=== PATIENT | female | born 1950 | race Caucasian/White ===

== ENCOUNTER 2016-08-16 21:46 | Inpatient (IN) | payer MEDICARE, MEDICAID ==
[~2016-08-16] VITALS: Ht 152.4 cm; Wt 78.0 kg
[~2016-08-16 21:46] MED LIST: ALLOPURINOL100 MG; ALPHA LIPOIC A200 MG PO; ASPIRIN LOW DOS81 MG PO; ATENOLOL25 MG PO; AUGMENTIN875TAB PO; AZOR1 TA1; AZOR1 TA1 PO; AZOR1 TA2; B COMPLEX PO; BENADRYL25 M1 PO; BENZONATATE200 MG PO; BETIMOL0.5 %; CARDURA4 MG; CITALOPRAM10 MG PO; CITALOPRAM20 MG PO; DIABETA2.5 MG PO; DICLOFENAC0.1 % OP; DIPHEN/ATROP2.5 M1 PO; DOXYCYCL HYC100 MG PO; FISH OIL300 MG PO; FLONASE NASAL50 MCG; GLIMEPIRIDE2 MG PO; HYZAAR1 TA1 PO; JANUVIA100 MG; JANUVIA100 MG PO; KLONOPIN WAF0.5 MG; LANTUS100 MG/ML; LASIX40 MG; LEXAPRO10 MG; LOMOTIL2.5 MG PO; LOPRESSOR50 MG; MELATONIN5 MG PO; METAMUCIL0.52 G1; MUCINEX600 MG PO; MULTIVITAMI1 PO; NOVOLIN; NOVOLOG; OMEPRAZOLE20 M2 PO; PLAVIX75 MG; POT CHLORIDE; PREMARIN0.625 MG; PRILOSEC20 MG PO; PROBIOTIC1 TAB PO; STOOL SOFTEN1 TAB PO; TESSALON PER100 MG PO; VIIBRYD20 MG PO; VITAMIN C500 MG; ZETIA10 MG; ZOCOR20 M1 PO; [UNRECOGNIZED DRUG - OTHER]
[2016-08-16] MEDS ORDERED: OMEPRAZOLE20 M2 PO (22:20)
[2016-08-16] MEDS ORDERED: JANUVIA100 MG PO (22:21)
[2016-08-16] MEDS ORDERED: VIVLODEX5 MG PO (22:21)
[2016-08-16] MEDS ORDERED: KLONOPIN1 MG PO (22:22)
[2016-08-16] MEDS ORDERED: METOPROL TAR25 MG PO (22:23)
[2016-08-16] MEDS ORDERED: [UNRECOGNIZED DRUG - CODE] PO (22:24)
[2016-08-16] MEDS ORDERED: MAG-G500 MG PO (22:25)
[2016-08-16] MEDS ORDERED: LYSINE1000 MG PO (22:25)
[2016-08-16] MEDS ORDERED: BETIMOL0.25 % OU (22:27)
--- NOTE | 2016-08-16 22:29 | NUR ---
PT AMBULATED TO ROOM 9 WITH HENOK
--- NOTE | 2016-08-16 23:00 | NUR ---
INTRODUCED SELF TO PT ON HER ARRVIAL TO ROOM 9 AND ASSESSMENT COMPELTED. PRESENTS WITH COMPLAINTS OF VOMITING X 4 AND DIARRHEA X 5 THAT BEGAN AT 0100 THIS AM. LAST EMESIS WAS AT APPROXIMATELY 0500 BUT HAS HAD SEVERAL LARGE LIQUID STOOLS AND INCONTINENCE. REPORTING MALAISE, WEAKNESS. DENIES FEVER, SORE THROAT, COUGH, DYSURIA. SHE IS ALERT AND ORIENTED, SKIN IS PALE, COOL AND DRY. SL DECREASED SKIN TURGOR. CAP REFILL < 2 SEC. ORAL MUCOUS MEMBRANES PINK, DRY. CONVERSES WITHOUT DIFFICULTY. ORIENTED ALL ASPECTS. RESPIRATIONS EUPENIC. CHEST EXPANSION IS SYMMETRICAL AND LUNGS ARE CLEAR. CARDIAC [id number] WITHOUT ECTOPY. ABDOMEN IS SOFT, MILD DISTENTION, NON TENDER TO PALPATION. NO PERIPHERAL EDEMA PRESENT. RADIAL/DP PULSES + 2. INSTRUCTED TO REMAIN NPO AT THIS TIME. PLAN OF CARE WAS REVIEWED AND PT IN AGREEMENT WITH TREATMENT PLAN. ATTEMPTED IV BY 2 PEOPLE AND ACHEIVED ON TRY # 3 TO LEFT HAND.
[2016-08-16 23:23] LABS: HEMOGLOBIN 11.4 g/dl (12.0-16.0); IMMATURE GRANULOCYTES 0.3 % (0.0-1.0); MEAN CELL VOLUME 92.6 fL CALC (80.0-100.0); MEAN CORPUSCULAR HGB 30.2 pG CALC (26.0-32.0); MEAN CORPUSCULAR HGB CONC 32.6 g/L CALC (32.0-36.0); NEUT# 6.37 thou/uL (2.00-7.15); RED BLOOD COUNT 3.78 mill/uL (4.20-5.60); RED CELL DISTRI WIDTH 13.1 % (11.5-15.5)
[2016-08-16 23:38] LABS: ALKALINE PHOSPHATASE 75 u/l (38-126); AMYLASE 37 u/l (30-110); ANION GAP 17 (6-22 (CALC)); BILIRUBIN, TOTAL 0.9 mg/dL (0.0-1.4); BUN 48 mg/dL (8-23); BUN/CREATININE RATIO 30 (12-20 (CALC)); CALCIUM 8.7 mg/dL (8.4-10.2); CARBON DIOXIDE 27 mmol/l (22-30); CHLORIDE 97 mmol/l (95-108); CREATININE 1.6 mg/dL (0.5-1.0); GFR 32 ML/MIN (>=60 (CALC)); GFR FOR AFR.AMER. 39 ML/MIN (>=60 (CALC)); GLUCOSE 337 mg/dL (82-115); LIPASE 35 u/l (23-300); POTASSIUM 4.1 mmol/l (3.5-5.1); SGOT/AST 32 u/l (9-36); SGPT/ALT 26 u/l (11-66); SODIUM 136 mmol/l (137-146); TOTAL PROTEIN 7.8 g/dL (6.3-8.2)
[2016-08-16 23:50] LABS: MYOGLOBIN 201 ng/mL (0 - 62)
--- NOTE | 2016-08-16 23:55 | NUR ---
DR. BENAVIDES INFORMED UNABLE TO OBTAIN LACTIC ACID AT THIS TIME. INFUSING FLUIDS AND WILL ATTEMPT IN ONE HOUR. PT AWARE AND IS REQUESTING "A LITTLE TIME BECAUSE I HATE NEEDLES." RESTING QUIETLY ON STRECHER, DENIES PAIN. NO EMESIS, NO DIARRHEA STOOLS.
--- NOTE | 2016-08-17 00:28 | NUR ---
ATTEMPTING BLOOD CULTURES AGAIN AFTER FLUID HYDRATION. NO EMESIS, NO DIARRHEA SINCE ARRIVAL. NAUSEA ALEVIATED POST ZOFRAN, NO ADVERSE REACTIONS NOTED. DISCUSSED ADMISSION AND PT IN AGREEMENT WITH TREATMENT PLAN
--- NOTE | 2016-08-17 00:59 | NUR ---
CIPRO INFUSION INTIATED AND PT INSTRUCTED TO NOTIFY STAFF IMMEDIATELY WITH ANY S/S OF DRUG REACTIONS
--- NOTE | 2016-08-17 01:13 | NUR ---
CALLED TO PT ROOM BECAUSE OF COMPLAINTS OF PRUITIS AT IV INSERTION SITE. OBSERVED PT SCRATCHING WRIST, NO RASH, NO EDEMA, NO ERYTHEMEA, SPEECH IS CLEAR, NORMAL PHONATION, AIRWAY IS PATENT WITHOUT STRIDOR, DROOLING, SKIN REMAINS WARM AND DRY. DISCUSSED WITH DR. BENAVIDES WHO ORDERED BENADRYL 25 MG IVP. DISCUSSED WITH PT WHO WAS IN AGREEMENT WITH TREATMENT PLAN. ADMONISHED REGARDING CONTINUATION OF OBSERVATION AND REPORTING OF S/S OF REACTION. FALL PRECAUTIONS WERE INTIATED BECAUSE OF IV BENADRYL ADMINISTRATION. BED IN LOW POSITION, SIDE RAILS UP AND CALL LIGHT REVIEWED WITH PT. FALL PRECAUTIONS BAND APPLIED.
--- NOTE | 2016-08-17 01:25 | NUR ---
PT REPORTS PRUITIS AT IV SITE CURRENTLTY RESOLVED. SLEEPY. COTIUES WITH CIPRO INFUSION PER DR. BENAVIDES. AIRWAY PATENT, NO STRIDOR, NO DROOLING, RESPIRATIONS EUPENIC. SKIN WARM AND DRY.
--- NOTE | 2016-08-17 02:02 | NUR ---
PT ASSESSMENTUNCHANGED. CONTINUES IN ED TO OBSERVE DURING CIPRO ADMINISTRAITON. REPORT CALLED TO WEI SHER ON MED/SURG
--- NOTE | 2016-08-17 02:14 | NUR ---
PLACED ON TELEMTRY MONITOR. PT TRANSPORTED VIA STRETCHER ACCOMPANIED BY BAKERY TEAM LEADER IN STABLE CONDITION. CIPRO COMPLTED AT 0201 WITHOUT FURTHER INCIDENT
--- NOTE | 2016-08-17 02:20 | NUR ---
PT TRANSFERED TO FLOOR IN STABLE CONDITION VIA STRETCHER ACCOMPANIED BY NIKKY CEDILLO;PT AMBULATED WITH WEAK GAIT TO STANDING SCALE AND BED;VS AND BS OF 278 OBTAINED BY JULIO CÉSAR MCCARTHY;PT DENIES ANY PAIN AT THIS TIME AND STATES "I FEEL BETTER SINCE I GOT HERE";PT ORIENTED TO ROOM AND CALL LIGHT SYSTEM AND VERBALIZES UNDERSTANDING;IV SITE TO LEFT HAND FLUSHED AND PATENT,FLUIDS STARTED;TELE MONITOR IN PLACE;PT REPORTS LAST BM TO BE ON 08/16 AND DIARRHEA;PT DENIES ANY ABDOMINAL PAIN AT THIS TIME;SKIN INTACT;PULSES STRONG;UA OBTAINED;PT DENIES ANY OTHER NEEDS;SAFETY PRECAUTIONS REINFORCED;PT EDUCATED TO CALL FOR ASSISTANCE IF NEEDED;BED IN LOWEST POSITION WITH CALL LIGHT IN REACH;WILL CONTINUE TO MONITOR
--- NOTE | 2016-08-17 03:00 | NUR ---
INITIAL TELE READING OF SR 62 OBTAINED BY ER MONTIORING AT THIS TIME;WILL CONTINUE TO MONITOR
[2016-08-17 03:29] LABS: URINE BILIRUBIN - DIPSTICK NEGATIVE (NEGATIVE); URINE BLOOD DIPSTICK NEGATIVE (NEGATIVE); URINE CLARITY CLOUDY; URINE COLOR YELLOW; URINE GLUCOSE - DIPSTICK NEGATIVE (NEGATIVE); URINE KETONE NEGATIVE (NEGATIVE); URINE LEUK ESTERASE NEGATIVE (NEGATIVE); URINE NITRITE - DIPSTICK NEGATIVE (Negative); URINE PROTEIN - DIPSTICK NEGATIVE (NEG-TRACE); URINE UROBILINOGEN - DIPSTICK 0.2 E.U./dL (0.2)
[2016-08-17 05:07] LABS: CREATININE 1.4 mg/dL (0.5-1.0); POTASSIUM 3.5 mmol/l (3.5-5.1)
--- NOTE | 2016-08-17 05:40 | NUR ---
PT RESTING IN SEMI FOWLERS POSITION;IV FLUIDS INFUSING WELL TO LEFT HAND;TELE MONITOR IN PLACE;PT DENIES ANY PAIN OR NEEDS AT THIS TIME;PT EDUCATED TO CALL FOR ASSISTANCE IF NEEDED;BED IN LOWEST POSITION WITH CALL LIGHT IN REACH;WILL CONTINUE TO MONITORM
--- NOTE | 2016-08-17 07:09 | NUR ---
REPORT RECIEVED FROM SEAN RESENDIZ; PT RESTING IN BED WITH EYES CLOSED; NO S/S OF DISTRESS NOTED; CALL LIGHT WITHIN REACH; WILL CONTINUE TO MONITOR
[2016-08-17 08:11] VITALS: BP 123/60
[2016-08-17 10:27] LABS: C. DIFFICILE TOXIN A&B NEGATIVE (NEGATIVE)
[2016-08-17 10:28] VITALS: BP 123/62
--- NOTE | 2016-08-17 12:00 | NUR ---
PT SITTING UP IN BED; FAMILY AT BEDSIDE; NO S/S OF DISTRESS NOTED; IVF INFUSING AT PRESCRIBED RATE; PT ENCOURAGED TO CALL FOR ANY ASSISTANCE NEEDED; CALL LIGHT WITHIN REACH; WILL CONTINUE TO MONITOR
[2016-08-17 14:44] VITALS: BP 129/67
--- NOTE | 2016-08-17 16:00 | NUR ---
PT SITTING UP IN BED; NO S/S OF DISTRESS NOTED; FAMILY AT BEDSIDE; IVF INFUSING AT PRESCRIBED RATE; PT DENIES ANY OTHER NEEDS AT THIS TIME; CALL LIGHT WITHIN REACH; WILL CONTINUE TO MONITOR
[2016-08-17 19:33] VITALS: BP 139/66
--- NOTE | 2016-08-17 19:42 | NUR ---
BEDSIDE REPORT RECEIVED BY NIKKY ROJO. PT SITTING UP IN BED, FAMILY AT BEDSIDE. DENIES PAIN AT THIS TIME. RESPIRATIONS EVEN AND UNLABORED. PLAN OF CARE DISCUSSED. PT ENCOURAGED TO VERBALIZE CONCERNS. STATES UNDERSTANDING. SAFETY MEASURES IN PLACE. CALL LIGTH WITHIN REACH.
[2016-08-17 23:25] VITALS: BP 147/67
--- NOTE | 2016-08-18 00:24 | NUR ---
PT ASLEEP AT THIS TIME. NO SIGNS OF PAIN/DISCOMFORT. RESPIRATIONS EVEN AND UNLABORED. FAMILY REMAINS AT BEDSIDE. SAFETY MEASURES IN PLACE. CALL LIGHT WITHIN REACH.
--- NOTE | 2016-08-18 04:12 | NUR ---
PT ASLEEP AT THIS TIME. NO SIGNS OF PAIN OR DISCOMFORT NOTED. RESPIRATIONS EVEN AND UNLABORED. SAFETY MEASURES IN PLACE. CALL LIGHT WITHIN REACH.
[2016-08-18 04:50] VITALS: BP 150/61
[2016-08-18 05:31] LABS: HEMATOCRIT 32.4 % (37.0-47.0); HEMOGLOBIN 10.4 g/dl (12.0-16.0); IMMATURE GRANULOCYTES 0.6 % (0.0-1.0); MEAN CELL VOLUME 93.9 fL CALC (80.0-100.0); MEAN CORPUSCULAR HGB 30.1 pG CALC (26.0-32.0); MEAN CORPUSCULAR HGB CONC 32.1 g/L CALC (32.0-36.0); NEUT# 7.61 thou/uL (2.00-7.15); RED BLOOD COUNT 3.45 mill/uL (4.20-5.60); RED CELL DISTRI WIDTH 12.9 % (11.5-15.5)
[2016-08-18 05:33] LABS: ANION GAP 15 (6-22 (CALC)); BUN 31 mg/dL (8-23); BUN/CREATININE RATIO 28 (12-20 (CALC)); CALCIUM 8.2 mg/dL (8.4-10.2); CARBON DIOXIDE 21 mmol/l (22-30); CHLORIDE 109 mmol/l (95-108); CREATININE 1.1 mg/dL (0.5-1.0); GFR 50 ML/MIN (>=60 (CALC)); GFR FOR AFR.AMER. > 60 ML/MIN (>=60 (CALC)); GLUCOSE 289 mg/dL (82-115); POTASSIUM 4.1 mmol/l (3.5-5.1); SODIUM 141 mmol/l (137-146)
--- NOTE | 2016-08-18 07:28 | NUR ---
PT TALKING WITH DAUGHTER; NO COMPLAINTS VOICED; CALL ROBBINS WITHIN REACH;WILL CONTINUE TO MONITOR.
[2016-08-18 08:38] VITALS: BP 178/70
--- NOTE | 2016-08-18 08:48 | NUR ---
TELE MONITOR IN PLACE; PT DENIES PAIN; IVF INFUSING WITHOUT DIFFICULTY; CALL ROBBINS WITHIN REACH; WILL CONTINUE TO MONITOR.
[2016-08-18 11:28] VITALS: BP 178/71
--- NOTE | 2016-08-18 12:30 | NUR ---
DR. RAMIREZ IN TO SEE PT; PLAN OF CARE;
[2016-08-18] MEDS ORDERED: CIPROFLOXACN500 MG PO (14:47)
--- NOTE | 2016-08-18 15:51 | NUR ---
Discharge instructions given. Patient verbalizes understanding of same. Discharged in stable condition via Wheelchair to Home with family. All belongings sent with pt.
== END 2016-08-18 15:52 | disposition home or self-care (01) | DRG 392 ==
LOC: ENPENDDIS → ED 21:46 → ED-I 08-17 00:10 → ED 08-17 00:15 → MS2 08-17 00:16
PROVIDERS: Emergency Medicine; ADMIT Internal Medicine; ATTEND Internal Medicine
DX: K52.9 Noninfective gastroenteritis and colitis, unspecified (principal); N17.9 Acute kidney failure, unspecified; K52.832 Lymphocytic colitis; E86.0 Dehydration; I10 Essential (primary) hypertension; E11.65 Type 2 diabetes mellitus with hyperglycemia; E78.5 Hyperlipidemia, unspecified; Z79.84 Long term (current) use of oral hypoglycemic drugs; Z98.84 Bariatric surgery status

== ENCOUNTER 2018-05-26 08:09 | Day surgery (SDC) | payer MEDICARE ==
[~2018-05-26] VITALS: Ht 157.5 cm; Wt 73.9 kg
[~2018-05-26 08:09] MED LIST changes: +BETIMOL0.25 % OU; +BRIMONIDINE0.2 % OU; +CIPROFLOXACN500 MG PO; +COQ-1030 M1 PO; +FISH OIL1000 MG PO; -FISH OIL300 MG PO; +FORSKOLIN PO; +KLONOPIN1 MG PO; +LATANOPROST0.005 % OU; +LYSINE1000 MG PO; +MAG-G500 MG PO; +METOPROL TAR25 MG PO; +TRESIBA FL100 UNIT/M IJ; +VITAMIN D31000 UNI1 PO; +VIVLODEX5 MG PO; +[UNRECOGNIZED DRUG - CODE] PO; +[UNRECOGNIZED DRUG - OTHER] IJ
[2018-05-26 10:25] VITALS: BP 162/76
== END 2018-05-26 10:42 | disposition home or self-care (01) ==
LOC: ENDO 08:09 → ORM 09:30 → ENDO 09:30 → ORM 10:00 → ENDO 10:42 → ORM 10:45
PROVIDERS: ATTEND Surgery
PROC: 0DBH8ZX Excision of Cecum, Via Natural or Artificial Opening Endoscopic, Diagnostic (ICD-10-PCS; principal; 2018-05-26)
PROC: 0DBL8ZX Excision of Transverse Colon, Via Natural or Artificial Opening Endoscopic, Diagnostic (ICD-10-PCS; 2018-05-26)
PROC: 0DBP8ZX Excision of Rectum, Via Natural or Artificial Opening Endoscopic, Diagnostic (ICD-10-PCS; 2018-05-26)
PROC: 0DBM8ZX Excision of Descending Colon, Via Natural or Artificial Opening Endoscopic, Diagnostic (ICD-10-PCS; 2018-05-26)
PROC: 0DB78ZX Excision of Stomach, Pylorus, Via Natural or Artificial Opening Endoscopic, Diagnostic (ICD-10-PCS; 2018-05-26)
DX: R19.7 Diarrhea, unspecified (principal); K44.9 Diaphragmatic hernia without obstruction or gangrene; K29.60 Other gastritis without bleeding; I12.9 Hypertensive chronic kidney disease with stage 1 through stage 4 chronic kidney disease, or unspecified chronic kidney disease; E11.22 Type 2 diabetes mellitus with diabetic chronic kidney disease; N18.3 Chronic kidney disease, stage 3 (moderate); E78.5 Hyperlipidemia, unspecified

== ENCOUNTER → 2018-06-17 | Outpatient (REF) | payer MEDICARE | END | disposition home or self-care (01) | LOC: CT 07:56 | PROVIDERS: ATTEND Surgery | DX: R19.7 Diarrhea, unspecified (principal) | CPT/HCPCS: Q9967 ==

== ENCOUNTER 2019-08-10 | Observation (INO) | payer MEDICARE, MEDICAID ==
--- NOTE | 2019-08-10 08:27 | NUR ---
PT TO ROOM VIA WC FOR BEDSIDE TRIAGE
--- NOTE | 2019-08-10 08:54 | NUR ---
PT MEDICATED PER MAR FOR ELEVATED BP; PT ADVISED OF ADDITIONAL TESTING; MONITORING DEVICES IN PLACE; WILL CONTINUE TO MONITOR
[2019-08-10] MEDS ORDERED: TRAZODONE100 MG PO (09:19)
[2019-08-10] MEDS ORDERED: COZAAR100 MG PO (09:19)
[2019-08-10] MEDS ORDERED: VICTOZA18 MG/3 ML SC (09:20)
[2019-08-10 09:21] LABS: IMMATURE GRANULOCYTES 0.2 % (0.0-5.0); MEAN CORPUSCULAR HGB 27.7 pG CALC (26.0-32.0); MEAN CORPUSCULAR HGB CONC 31.5 g/dL CAL (32.0-36.0); NEUT# 5.51 thou/uL (2.00-7.15); RED BLOOD COUNT 4.83 mill/uL (4.20-5.60); RED CELL DISTRI WIDTH 13.5 % (11.5-15.5)
[2019-08-10 09:22] LABS: HEMATOCRIT 42.5 % (37.0-47.0); HEMOGLOBIN 13.4 g/dl (12.0-16.0)
--- NOTE | 2019-08-10 09:28 | NUR ---
PT MEDICATED AT THIS TIME FOR HEADACHE RATING 8 OUT OF 10; PT NERVOUS AND TREMBLING; MONITORING DEVIES IN PLACE; ADVISED OF CONTINUED WAIT TIME; WILL CONTINUE TO MONITOR
[2019-08-10 09:38] LABS: ALBUMIN 4.5 g/dL (3.2-5.0); ALKALINE PHOSPHATASE 94 u/l (38-126); AMYLASE 77 u/l (30-110); ANION GAP 16 (6-22 (CALC)); BILIRUBIN, TOTAL 0.8 mg/dL (0.0-1.4); BUN 18 mg/dL (8-23); BUN/CREATININE RATIO 14 (12-20 (CALC)); CARBON DIOXIDE 24 mmol/l (22-30); CHLORIDE 107 mmol/l (95-108); CREATININE 1.3 mg/dL (0.5-1.0); GFR 41 ML/MIN (>=60 (CALC)); GFR FOR AFR.AMER. 49 ML/MIN (>=60 (CALC)); LIPASE 143 u/l (23-300); POTASSIUM 4.3 mmol/l (3.5-5.1); SGOT/AST 31 u/l (9-36); SODIUM 142 mmol/l (137-146); TOTAL PROTEIN 8.5 g/dL (6.3-8.2)
[2019-08-10 09:50] LABS: MYOGLOBIN 70 ng/mL (0 - 62)
--- NOTE | 2019-08-10 10:05 | NUR ---
RECIEVED REPORT FROM ALIA
--- NOTE | 2019-08-10 10:26 | NUR ---
PT SWABBED FOR COVID 19 VIRUS
--- NOTE | 2019-08-10 11:20 | NUR ---
PT UPDATED ON PENDING ADMISSION
--- NOTE | 2019-08-10 11:50 | NUR ---
GAVE REPORT TO ALVINA
--- NOTE | 2019-08-10 12:00 | NUR ---
TRANSPORTED PT TO [facility] SURG STABLE AND IN NO DISTRESS VIA STRETCHER. CARE ASSUMED TO SIN Admission Note Report Given to: Transported by: Wheelchair X Stretcher Transported with: X Nurse Transporter X Patent IV O2 X Chief Chemist Location: ICU X MS2
[2019-08-10 12:26] VITALS: BP 194/78
--- NOTE | 2019-08-10 12:26 | NUR ---
PT ARRIVED TO MED SURG ROOM 279 IN STABLE CONDITION VIA STRETCHER ACCOMPANIED NIKKY PERRY. PT AMBULATED WITH A STEADY GAIT TO STANDING SCALE AND BED SIDE. WEIGHT AND VITALS OBTAINED. CURRENT BP 194/70 HR 91, PT ASYPTOMATIC AT THIS TIME. PT A/O X3, ORIENTED TO ROOM AND CALL LIGHT SYSTEM. 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 PT DENIES ANY PAIN OR DISCOMFORTS, PAIN SCALE AND REPORTING EDUCATED. RESPIRATIONS EVEN AND UNLABORED ON RA, LUNG SOUNDS CLEAR. NON PRODUCTIVE COUGH NOTED. ABDOMEN SOFT ON PALPATION AND ACTIVE IN ALL 4 QUANDRANTS, LAST BM 08/10/19. STRONG PEDAL PULSES NOTED. TELE MONITOR IN PLACE. #20G LAC FLUSHED AND PATENT, SITE APPEARS HEALTHY. FALL AND ALLERGY BAND APPLIED TO RIGHT ARM. ACCUCHECK OBTAINED RESULTING IN 180. PT DENIES ANY ADDITIONAL NEEDS AT THIS TIME. ENCOURAGED TO CALL FOR ASSISTANCE IF NEEDED. FALL PERCAUTIONS IN PLACE WITH BE IN THE LOWEST POSTION AND CALL LIGHT IN REACH. WILL CONTIUE TO MONITOR.
--- NOTE | 2019-08-10 12:50 | NUR ---
DR RAMIREZ AT BED SIDE DISCUSSING POC.
[2019-08-10 13:42] VITALS: BP 193/84
[2019-08-10 15:13] VITALS: BP 186/90
--- NOTE | 2019-08-10 15:16 | NUR ---
BP RECHECK 186/90 HR 74. PT TO BE MEDICATED WITH PRN APRESOLINE 10MG IVP BY Jaylon GOTTLIEB RN.WILL CONTINUE TO MONITOR FOR EFFECTIVENESS.
[2019-08-10 16:09] LABS: URINE BILIRUBIN - DIPSTICK NEGATIVE (NEGATIVE); URINE BLOOD DIPSTICK NEGATIVE (NEGATIVE); URINE COLOR YELLOW; URINE GLUCOSE - DIPSTICK NEGATIVE (NEGATIVE); URINE KETONE TRACE mg/dL (NEGATIVE); URINE LEUK ESTERASE NEGATIVE (NEGATIVE); URINE NITRITE - DIPSTICK NEGATIVE (Negative); URINE PH 5.5 (4.5-8.0); URINE PROTEIN - DIPSTICK >=300 mg/dL (NEG-TRACE); URINE SPECIFIC GRAVITY >=1.030; URINE UROBILINOGEN - DIPSTICK 0.2 E.U./dL (0.2)
[2019-08-10 16:17] LABS: URINE BACTERIA MANY hpf; URINE SQUAMOUS EPITHELIAL CELL FEW EPI/hpf (0-FEW)
--- NOTE | 2019-08-10 16:34 | NUR ---
RECHECK BP AFTER GIVEN APRESOLINE. BP 166/76. HR 92. PT DENIES ANY PAIN OR DISCOMFORTS. WILL CONTINUE TO MONITOR.
[2019-08-10 16:35] VITALS: BP 166/76
--- NOTE | 2019-08-10 18:00 | NUR ---
PT VERY ANXIOUS,SHAKING AND ROCKING BACK AND FOURTH;RESPIRATIONS EVEN AND UNLABORED ON RA;PT DENIES ANY PAIN OR DISCOMFORTS;TELE MONITORING IN PLACE;PT REPORTS DESIRES TO GO HOME;PT ASSIST TO COUCH WITH ASSISTANCE AND SEAN RUIZ REMAINED AT BEDSIDE; NOTIFIED OF INCREASED ANXIETY AND NEW ORDERS RECEIVED FROM ATIVAN 0.5MG IVP Q6HRS PRN ANXIETY;PT TO BE MEDICATED PER ORDER;WILL CONTINUE TO MONITOR
--- NOTE | 2019-08-10 18:30 | NUR ---
PT MEDICATED WITH ATIVAN 0.5MG IVP AT THIS TIME FOR ANXIETY;PT ASSISTED BACK TO BED WITH 1 PERSON ASSIST AND RE-POSITIONED FOR COMFORT;ALL SAFETY PRECAUTIONS REMAIN IN PLACE WITH BED IN THE LOWEST POSITION AND CALL LIGHT IN REACH;WILL CONTINUE TO MONITOR
--- NOTE | 2019-08-10 18:41 | NUR ---
PT APPEARS TO BE SLEEPING IN SEMI FOWLERS POSITION;RESPIRATIONS KERVIN AND UNLABORED ON RA;NO S/S OF DISTRESS NOTED;TELE MONITORING IN PLACE;CALL LIGHT IN REACH;WILL CONTINUE TO MONITOR
--- NOTE | 2019-08-10 19:15 | NUR ---
PATIENT RESTING IN BED AT THIS TIME AND IS VERY ANXIOUS. PATIENT STATES THAT SHE JUST CAN'T BE ALONE HERE IN THE HOSPITAL AT THIS TIME. STATES THAT SHE WANTS TO GO HOME. ATTEMPTED TO EXPLAIN TO THE PATIENT THAT SHE HAS NOT BEEN DISCHARGED AND IS STILL HAVING LAB WORK DRAWN FOR SERIAL TROPS. ALSO ON TELE MONITOR AND MONITORING VS. TELE MONITOR IN PLACE. IV SITE TO [facility] INTACT-IS HEALTHY AT THIS TIME. SAFETY PRECAUTIONS REINFORCED. PATIENT UP IN ROOM AND UNSTEADY ON HER FEET BUT INSISTS THAT SHE NEEDS TO GO HOME. AGAIN ATTEMPTED TO EXPLAIN THAT SHE HAS NOT BEEN DISCHARGED AND THAT IF SHE DECIDES TO LEAVE IT IS AMA. [facility] REPAIRER NOTIFIED. 1929- TROP WAS DRAWN ORDERED BUT PATIENT OUT IN THE HOUSE UNSTEADY ON HER FEET AND STATES AGAIN THAT SHE IS GOING HOME AND CALLING HER DAUGHTER PADMINI TO COME AND PICK HER UP. TELE MONITOR WAS REMOVED BY PATIENT. 1939-PATIENT IS DRESSED AND OUT IN THE HOUSE STATES THAT SHE IS LEAVING. PATIENT ASSISTED BACK TO ROOM. PATIENT CALLED DAUGHTER PADMINI AND STAFF SPOKE WITH HER. DAUGHTER WAS TOLD PATIENT WAS INSISTING THAT SHE LEAVE-THAT SHE CAN'T STAY HERE ALONE TONIGHT AND UNCOOPERATIVE WITH CARE. PJ WAS TOLD THAT THE PATIENT WASN'T DISCHARGED AND THAT SHE WAS LEAVING AMA. PJ VERBALIZED UNDERSTANDING OF SITUATION AND WILL BE IN TO PICK HER MOM UP. 1944-PATIENT CONT TO COME OUT THE ROOM AND ATTEMPTING TO LEAVE. PATIENT SIGNED AMA PAPER AND IV SITE TO [facility] WAS D/C'ED WITH CATH INTACT. PATIENT REMAINS HIGH ANXIETY AND UNSTEADY ON HER FEET. INSTRUCTED TO STAY IN ROOM UNTIL DAUGHTER ARRIVES. 2004-RECIEVED CALL FROM [facility] THAT THE DAUGHTER PADMINI WAS HERE TO TIER LIFT OPERATOR HER MOTHER. PATIENT WAS ASSISTED TO THE LOBBY VIA WHEELCHAIR TO BE PICK-UP WITH DAUGHTER PADMINI.
[2019-08-10 19:37] VITALS: BP 164/84
--- NOTE | 2019-08-11 09:13 | NUR ---
Left message for pt to return call to the Pharmacy. Pt left eye drops here. They will be stored in Pharmacy for 30 days if pt would like to pick them up.
--- NOTE | 2019-08-12 13:56 | NUR ---
SPOKE TO PT, AWARE OF EYEDROPS IN PHARMACY. URINE CX SHOWS E COLI WITH CULP SENSITIVITY. PT REPORTS NO NEW SYMPTOMS, NO UTI SYMPTOMS, FEELS MUCH BETTER SINCE LEAVING. NO FOLLOW UP WARRANTED
--- NOTE | 2019-08-13 13:58 | NUR ---
COVID 19 swab results called to patient with confirmation of name and date of . Encouraged stay home, stay safe, frequent handwashing and social distancing. Patient states she is feeling better.
== END 2019-08-10 20:05 | disposition left against medical advice (07) ==
PROVIDERS: Emergency Medicine; ADMIT Internal Medicine
DX: I16.0 Hypertensive urgency (principal); I10 Essential (primary) hypertension; E11.40 Type 2 diabetes mellitus with diabetic neuropathy, unspecified; E78.5 Hyperlipidemia, unspecified; R94.31 Abnormal electrocardiogram [ECG] [EKG]; R42 Dizziness and giddiness; R11.2 Nausea with vomiting, unspecified; R44.3 Hallucinations, unspecified; Z98.84 Bariatric surgery status; Z79.4 Long term (current) use of insulin; Z20.828 Contact with and (suspected) exposure to other viral communicable diseases
CPT/HCPCS: G0378; J2060

== ENCOUNTER 2022-10-24 18:01 | Observation (INO) | payer MEDICARE, MEDICAID ==
[2022-10-24] VITALS (19 sets, daily range): BP systolic 89–119; BP diastolic 36–61
[~2022-10-24] VITALS: Ht 157.5 cm; Wt 65.7 kg
[~2022-10-24 18:01] MED LIST changes: +COMPAZINE10 MG PO; +COZAAR100 MG PO; +TRAZODONE100 MG PO; -TRESIBA FL100 UNIT/M IJ; +TRESIBA FL100 UNIT/M SC; +VICTOZA18 MG/3 ML SC
[2022-10-24 18:25] LABS: BASO% 0.7 % (0-3); EOS% 4.9 % (0-8); HEMATOCRIT 30.4 % (37.0-47.0); HEMOGLOBIN 9.7 g/dl (12.0-16.0); IMMATURE GRANULOCYTES 0.1 % (0.0-5.0); LYMPH% 21.7 % (15-41); MEAN CELL VOLUME 91.8 fL CALC (80.0-100.0); MEAN CORPUSCULAR HGB 29.3 pG CALC (26.0-32.0); MEAN CORPUSCULAR HGB CONC 31.9 g/dL CAL (32.0-36.0); MONO% 9.9 % (2-13); NEUT# 4.57 thou/uL (2.00-7.15); NEUT% 62.7 % (42-76); RED BLOOD COUNT 3.31 mill/uL (4.20-5.60); RED CELL DISTRI WIDTH 12.3 % (11.5-15.5)
[2022-10-24 18:36] LABS: ALBUMIN 3.3 g/dL (3.2-5.0); BILIRUBIN, TOTAL 0.5 mg/dL (0.02-1.3); CREATININE 2.8 mg/dL (0.5-1.0); TOTAL PROTEIN 6.2 g/dL (6.3-8.2)
[2022-10-24] MEDS ORDERED: GABAPENTIN300 M2 (18:41)
[2022-10-24] MEDS ORDERED: VITAMIN D-32000 UNI1 (18:41)
[2022-10-24] MEDS ORDERED: NIVOLUMAB (18:43)
[2022-10-24] MEDS ORDERED: [UNRECOGNIZED DRUG - OTHER] (18:43)
[2022-10-24] MEDS ORDERED: FAMOTIDINE20 M1 PO (18:44)
[2022-10-24] MEDS ORDERED: ALPHAGAN P0.1 % OP (18:44)
[2022-10-24] MEDS ORDERED: PROZAC40 MG PO (18:45)
[2022-10-24] MEDS ORDERED: DIOVAN160 MG PO (18:45)
[2022-10-24] MEDS ORDERED: PLAVIX75 MG PO (18:46)
[2022-10-24] MEDS ORDERED: ZOFRAN4 MG/TAB PO (18:46)
[2022-10-24] MEDS ORDERED: ATORVASTATIN CA40 MG PO (18:46)
[2022-10-24] MEDS ORDERED: COREG12.5 MG PO (18:47)
[2022-10-24] MEDS ORDERED: LEVOTHYROXIN88 MC1 PO (18:47)
[2022-10-24] MEDS ORDERED: AMLODIPINE BESY10 MG PO (18:48)
[2022-10-24] MEDS ORDERED: CLONIDINE0.2 MG/21 (18:48)
[2022-10-25] VITALS (8 sets, daily range): BP systolic 109–129; BP diastolic 37–44
[2022-10-25 05:20] LABS: HEMATOCRIT 29.9 % (37.0-47.0); HEMOGLOBIN 9.7 g/dl (12.0-16.0); MEAN CELL VOLUME 90.6 fL CALC (80.0-100.0); MEAN CORPUSCULAR HGB 29.4 pG CALC (26.0-32.0); MEAN CORPUSCULAR HGB CONC 32.4 g/dL CAL (32.0-36.0); RED BLOOD COUNT 3.3 mill/uL (4.20-5.60); RED CELL DISTRI WIDTH 12.1 % (11.5-15.5)
[2022-10-25 05:25] LABS: URINE BILIRUBIN - DIPSTICK SEE COMMNET (NEGATIVE); URINE BLOOD DIPSTICK TRACE-INTACT (NEGATIVE); URINE COLOR YELLOW; URINE GLUCOSE - DIPSTICK NEGATIVE (NEGATIVE); URINE KETONE 40 mg/dL (NEGATIVE); URINE LEUK ESTERASE TRACE (NEGATIVE); URINE NITRITE - DIPSTICK NEGATIVE (Negative); URINE PH 5.5 (4.5-8.0); URINE PROTEIN - DIPSTICK 30 mg/dL (NEG-TRACE); URINE SPECIFIC GRAVITY >=1.030; URINE UROBILINOGEN - DIPSTICK 0.2 E.U./dL (0.2)
[2022-10-25 05:33] LABS: URINE BACTERIA MODERATE hpf; URINE MUCUS FEW hpf (NONE-FEW); URINE SQUAMOUS EPITHELIAL CELL FEW EPI/hpf (0-FEW); URINE YEAST MODERATE hpf
[2022-10-25 05:42] LABS: ALBUMIN 3.1 g/dL (3.2-5.0); BILIRUBIN, TOTAL 0.6 mg/dL (0.02-1.3); CREATININE 2.6 mg/dL (0.5-1.0); MAGNESIUM 1.7 mg/dL (1.6-2.3); POTASSIUM 3.7 mmol/l (3.5-5.1); TOTAL PROTEIN 6.1 g/dL (6.3-8.2)
[2022-10-25 23:04] LABS: BASO% 0.6 % (0-3); EOS% 4.8 % (0-8); HEMATOCRIT 27.9 % (37.0-47.0); HEMOGLOBIN 9.1 g/dl (12.0-16.0); IMMATURE GRANULOCYTES 0.6 % (0.0-5.0); LYMPH% 29.3 % (15-41); MEAN CORPUSCULAR HGB 29.4 pG CALC (26.0-32.0); MEAN CORPUSCULAR HGB CONC 32.6 g/dL CAL (32.0-36.0); MONO% 8.9 % (2-13); NEUT# 3.63 thou/uL (2.00-7.15); NEUT% 55.8 % (42-76); RED BLOOD COUNT 3.1 mill/uL (4.20-5.60); RED CELL DISTRI WIDTH 12.2 % (11.5-15.5)
[2022-10-25 23:21] LABS: BILIRUBIN, TOTAL 0.4 mg/dL (0.02-1.3); CREATININE 2.3 mg/dL (0.5-1.0); INTERNATIONAL NORMALIZED RATIO 1.1 RATIO (0.7-1.3); POTASSIUM 3.4 mmol/l (3.5-5.1); PROTHROMBIN TIME 10.8 SECONDS (9.0-12.5); TOTAL PROTEIN 6.4 g/dL (6.3-8.2)
[2022-10-26 03:14] VITALS: BP 122/95
[2022-10-26 04:02] VITALS: BP 122/95
[2022-10-26 05:23] LABS: HEMATOCRIT 27.5 % (37.0-47.0); HEMOGLOBIN 8.9 g/dl (12.0-16.0); MEAN CELL VOLUME 91.7 fL CALC (80.0-100.0); MEAN CORPUSCULAR HGB 29.7 pG CALC (26.0-32.0); MEAN CORPUSCULAR HGB CONC 32.4 g/dL CAL (32.0-36.0); RED CELL DISTRI WIDTH 12.6 % (11.5-15.5)
[2022-10-26 05:45] LABS: ALBUMIN 3.1 g/dL (3.2-5.0); BILIRUBIN, TOTAL 0.4 mg/dL (0.02-1.3); CREATININE 2.1 mg/dL (0.5-1.0); MAGNESIUM 1.6 mg/dL (1.6-2.3); POTASSIUM 3.5 mmol/l (3.5-5.1); TOTAL PROTEIN 6.3 g/dL (6.3-8.2)
[2022-10-26 06:40] VITALS: BP 122/41
[2022-10-26 10:00] VITALS: BP 128/46
== END 2022-10-26 12:35 | disposition home or self-care (01) ==
LOC: ED 18:01 → MS2 21:25
PROVIDERS: Family Medicine; ADMIT Internal Medicine; ATTEND Internal Medicine
DX: I95.9 Hypotension, unspecified (principal); N17.9 Acute kidney failure, unspecified; I12.9 Hypertensive chronic kidney disease with stage 1 through stage 4 chronic kidney disease, or unspecified chronic kidney disease; E11.22 Type 2 diabetes mellitus with diabetic chronic kidney disease; N18.9 Chronic kidney disease, unspecified; I69.392 Facial weakness following cerebral infarction; C43.72 Malignant melanoma of left lower limb, including hip; E78.00 Pure hypercholesterolemia, unspecified; F32.A Depression, unspecified; Z79.4 Long term (current) use of insulin; Z79.85 Long-term (current) use of injectable non-insulin antidiabetic drugs; Z79.82 Long term (current) use of aspirin; Z79.02 Long term (current) use of antithrombotics/antiplatelets; Z98.84 Bariatric surgery status

== ENCOUNTER 2023-10-11 09:32 | Emergency (ER) | payer MEDICARE, MEDICAID ==
[2023-10-11] VITALS (12 sets, daily range): BP systolic 154–192; BP diastolic 85–104
[~2023-10-11] VITALS: Ht 157.5 cm; Wt 61.6 kg
[~2023-10-11 09:32] MED LIST changes: +ALPHAGAN P0.1 % OP; +AMLODIPINE BESY10 MG PO; +ANUCORT-HC25 MG PO; +APRESOLINE50 MG PO; +ASPIRINCHW 81MG PO; +ATORVASTATIN CA40 MG PO; +CLONIDINE0.2 MG/21; +COREG12.5 MG PO; +DICYCLOMINE HCL20 MG PO; +DIOVAN160 MG PO; +FAMOTIDINE20 M1 PO; +GABAPENTIN300 M2; +KEFLEX500 MG PO; +KLOR-CON M2020 MEQ PO; +LEVOTHYROXIN125 MC1 PO; +LEVOTHYROXIN88 MC1 PO; +MACROBID100 M1 PO; +MELATONIN3 M1 PO; +NEURONTIN100 MG PO; +NIVOLUMAB; +OMEPRAZOLE DR40 MG; +PLAVIX75 MG PO; +PREDNISONE10 MG PO; +PROZAC40 MG PO; +TORSEMIDE20 M1 PO; +VITAMIN D-32000 UNI1; +XANAX0.25 MG PO; +ZOFRAN4 MG/TAB PO; +[UNRECOGNIZED DRUG - OTHER]; +[UNRECOGNIZED DRUG - SUPPLY]
[2023-10-11] MEDS ORDERED: SODIUM CHLORIDE 0.9% 1,000 ML IV ONE (10:15)
[2023-10-11 10:22] LABS: BASO% 0.3 % (0-3); EOS% 1.6 % (0-8); IMMATURE GRANULOCYTES 0.1 % (0.0-5.0); LYMPH% 47.7 % (15-41); MEAN CELL VOLUME 101.8 fL CALC (80.0-100.0); MEAN CORPUSCULAR HGB 30.9 pG CALC (26.0-32.0); MEAN CORPUSCULAR HGB CONC 30.4 g/dL CAL (32.0-36.0); MONO% 4.8 % (2-13); NEUT# 4.36 thou/uL (2.00-7.15); NEUT% 45.5 % (42-76); RED BLOOD COUNT 4.4 mill/uL (4.20-5.60); RED CELL DISTRI WIDTH 13.7 % (11.5-15.5)
[2023-10-11 10:30] LABS: HEMATOCRIT 44.8 % (37.0-47.0); HEMOGLOBIN 13.6 g/dl (12.0-16.0)
[2023-10-11 10:36] LABS: CREATININE 1.8 mg/dL (0.5-1.0); POTASSIUM 4.8 mmol/l (3.5-5.1)
[2023-10-11 10:39] LABS: ALBUMIN 4.5 g/dL (3.2-5.0); BILIRUBIN, TOTAL 1.2 mg/dL (0.02-1.3); TOTAL PROTEIN 8.1 g/dL (6.3-8.2)
[2023-10-11 11:00] LABS: URINE BLOOD DIPSTICK Moderate (NEGATIVE); URINE GLUCOSE - DIPSTICK Negative (NEGATIVE); URINE KETONE Negative (NEGATIVE); URINE LEUK ESTERASE Negative (NEGATIVE); URINE NITRITE - DIPSTICK Negative (Negative); URINE PH 5.5 (4.5-8.0); URINE PROTEIN - DIPSTICK >=300 mg/dL (NEG-TRACE); URINE SPECIFIC GRAVITY >=1.030; URINE UROBILINOGEN - DIPSTICK 0.2 E.U./dL (0.2)
[2023-10-11 11:02] LABS: URINE COLOR Yellow
[2023-10-11 11:03] LABS: URINE EPITHELIAL CELLS MODERATE EPI/hpf (0-FEW); URINE MUCUS MODERATE hpf (NONE-FEW)
[2023-10-11] MEDS ORDERED: ASPIRIN 81 MG/TAB PO ONE (11:05)
[2023-10-11] MEDS ORDERED: NITROGLYCERIN 2% OINT UD 1 GM/PAK TD ONE (11:05)
[2023-10-11] MEDS ORDERED: Heparin SODIUM (Porcine) 5,000 UNITS/ML SDV IV ONE (11:10)
[2023-10-11] MEDS ORDERED: cloNIDine TRANSDERMAL 0.2MG/24 HR 7-DAY PATCH TD ONE (11:25)
== END 2023-10-11 12:24 | disposition short-term general hospital (02) ==
LOC: ED 09:32
PROVIDERS: Family Medicine
DX: I21.9 Acute myocardial infarction, unspecified (principal); I13.0 Hypertensive heart and chronic kidney disease with heart failure and stage 1 through stage 4 chronic kidney disease, or unspecified chronic kidney disease; I50.9 Heart failure, unspecified; E11.22 Type 2 diabetes mellitus with diabetic chronic kidney disease; N18.9 Chronic kidney disease, unspecified

== ENCOUNTER 2023-10-25 20:21 | Emergency (ER) | payer MEDICARE, MEDICAID ==
[2023-10-25] VITALS (8 sets, daily range): BP systolic 181–195; BP diastolic 76–87
[~2023-10-25] VITALS: Ht 157.5 cm; Wt 60.0 kg
[2023-10-25] MEDS ORDERED: METOLAZONE 2.5 MG/TAB PO ONE (20:35)
[2023-10-25] MEDS ORDERED: NITROGLYCERIN 2% OINT UD 1 GM/PAK TD ONE (20:35)
[2023-10-25] MEDS ORDERED: FUROSEMIDE 40 MG/4 ML SDV IV ONE (20:35)
[2023-10-25 20:55] LABS: BASO% 0.1 % (0-3); EOS% 0.2 % (0-8); IMMATURE GRANULOCYTES 0.2 % (0.0-5.0); LYMPH% 10.8 % (15-41); MEAN CELL VOLUME 103.9 fL CALC (80.0-100.0); MEAN CORPUSCULAR HGB 30.3 pG CALC (26.0-32.0); MEAN CORPUSCULAR HGB CONC 29.1 g/dL CAL (32.0-36.0); MONO% 3.4 % (2-13); NEUT# 9.04 thou/uL (2.00-7.15); NEUT% 85.3 % (42-76); RED BLOOD COUNT 3.04 mill/uL (4.20-5.60); RED CELL DISTRI WIDTH 14.3 % (11.5-15.5)
[2023-10-25 20:58] LABS: HEMATOCRIT 31.6 % (37.0-47.0); HEMOGLOBIN 9.2 g/dl (12.0-16.0)
[2023-10-25 21:09] LABS: ALBUMIN 3.7 g/dL (3.2-5.0); CREATININE 2.3 mg/dL (0.5-1.0); POTASSIUM 4.5 mmol/l (3.5-5.1); TOTAL PROTEIN 6.8 g/dL (6.3-8.2)
[2023-10-25 21:11] LABS: ACT PARTIAL THROMBO TIME 22.8 SECONDS (20.0-32.5); INTERNATIONAL NORMALIZED RATIO 1.1 RATIO (0.7-1.3)
[2023-10-25 21:14] LABS: PROTHROMBIN TIME 10.7 SECONDS (9.0-12.5)
[2023-10-25 21:19] LABS: BILIRUBIN, TOTAL 0.4 mg/dL (0.02-1.3); MAGNESIUM 2.6 mg/dL (1.6-2.3)
[2023-10-25] MEDS ORDERED: SPIRONOLACT25 MG PO (22:22)
[2023-10-25] MEDS ORDERED: LASIX 20 MG TAB20 MG PO (22:22)
== END 2023-10-25 23:00 | disposition home or self-care (01) ==
LOC: ED 20:21
PROVIDERS: Family Medicine
DX: I13.0 Hypertensive heart and chronic kidney disease with heart failure and stage 1 through stage 4 chronic kidney disease, or unspecified chronic kidney disease (principal); I50.9 Heart failure, unspecified; E11.22 Type 2 diabetes mellitus with diabetic chronic kidney disease; N18.9 Chronic kidney disease, unspecified; I25.10 Atherosclerotic heart disease of native coronary artery without angina pectoris; T38.3X6A Underdosing of insulin and oral hypoglycemic [antidiabetic] drugs, initial encounter; Z91.138 Patient's unintentional underdosing of medication regimen for other reason; Z95.5 Presence of coronary angioplasty implant and graft; Z79.84 Long term (current) use of oral hypoglycemic drugs; Z20.822 Contact with and (suspected) exposure to COVID-19

== ENCOUNTER 2024-04-19 10:32 | Inpatient (IN) | payer MEDICARE, MEDICAID ==
[~2024-04-19] VITALS: Ht 157.5 cm; Wt 58.0 kg
[2024-04-19] VITALS (20 sets, daily range): BP systolic 105–208; BP diastolic 41–89
[~2024-04-19 10:32] MED LIST changes: +CARVEDILOL6.25 MG PO; +GABAPENTIN100 MG PO; +ISOSORB DIN20 MG PO; +LASIX 20 MG TAB20 MG PO; +LASIX 40 MG TAB40 MG PO; +ONDANSETRON4 MG PO; +SPIRONOLACT25 MG PO
--- NOTE | 2024-04-19 10:40 | NUR ---
PT TO ROOM VIA WC WITH DAUGHTERS
[2024-04-19] MEDS ORDERED: cefTRIAXone SODIUM 2 GM in SODIUM CHLORIDE 0.9% 100 ML IV ONE (11:10)
[2024-04-19] MEDS ORDERED: AZITHROMYCIN 500 MG in SODIUM CHLORIDE 0.9% 500 ML IV ONE (11:10)
[2024-04-19 11:12] LABS: BASO% 0.2 % (0-3); EOS% 0.7 % (0-8); HEMOGLOBIN 12.2 g/dl (12.0-16.0); IMMATURE GRANULOCYTES 0.3 % (0.0-5.0); LYMPH% 18.5 % (15-41); MEAN CORPUSCULAR HGB 31.3 pG CALC (26.0-32.0); MEAN CORPUSCULAR HGB CONC 31.3 g/dL CAL (32.0-36.0); MONO% 2.5 % (2-13); NEUT# 7.11 thou/uL (2.00-7.15); NEUT% 77.8 % (42-76); RED BLOOD COUNT 3.9 mill/uL (4.20-5.60); RED CELL DISTRI WIDTH 13.7 % (11.5-15.5)
[2024-04-19 11:29] LABS: ALBUMIN 3.9 g/dL (3.2-5.0); POTASSIUM 4.2 mmol/l (3.5-5.1); TOTAL PROTEIN 6.9 g/dL (6.3-8.2)
--- NOTE | 2024-04-19 12:07 | NUR ---
PT O2 SAT 88%. PT PLACED ON 2L NC
[2024-04-19] MEDS ORDERED: ONDANSETRON HCl 4 MG/2 ML SDV IV ONE (12:15)
--- NOTE | 2024-04-19 12:39 | NUR ---
ATTEMPT TO COMPLETE MED REC. PT FAMILY NOR PT KNOWS MEDS AND DOSAGES. PT REPORTS WILL CALL OTHER FAMILY MEMBER TO BRING LIST. AWAITING LIST.
--- NOTE | 2024-04-19 13:24 | NUR ---
PTS IV SIT INFILTRATED. NEW IV INITAITED. IV ABX CONTINUED.
--- NOTE | 2024-04-19 13:25 | NUR ---
PT REPORTS FURTHER NAUSEA. MD IS MADE AWARE
[2024-04-19] MEDS ORDERED: OSELTAMIVIR PHOSPHATE 75 MG/TAB CAP PO ONE (13:45)
--- NOTE | 2024-04-19 14:30 | NUR ---
PT REPORTS BEING UNABLE TO URINATE. PER PTS PERMISSION. PT YUAN ANDERSON COLLECTED. BRIEF CHANGED FROM STOOL INCONTINENCE, BED LINEN CHANGED. PT REPORTS FEELING TIRED. LIGHTS DIMMED FOR COMFORT. FAMILY REMAINS AT STIDE. AWAITING MED REC FROM OTHER FAMILY MEMBER.
--- NOTE | 2024-04-19 14:51 | NUR ---
ATTEMP TO CALL REPORT TO [facility]. NURSE IS BUSY WITH ANOTHER PATIENT. AWAITING A CALL BACK. PT RESTING IN BED,EYES CLOSED. VSS
[2024-04-19 14:58] LABS: URINE BILIRUBIN - DIPSTICK Negative (NEGATIVE); URINE BLOOD DIPSTICK Trace-lysed (NEGATIVE); URINE GLUCOSE - DIPSTICK Negative (NEGATIVE); URINE KETONE Negative (NEGATIVE); URINE LEUK ESTERASE Trace (NEGATIVE); URINE PROTEIN - DIPSTICK 100 mg/dL (NEG-TRACE)
[2024-04-19 15:00] LABS: URINE COLOR Yellow; URINE NITRITE - DIPSTICK Positive (Negative)
[2024-04-19 15:03] LABS: URINE RBC 0-2 RBC/hpf (0-5)
[2024-04-19 15:04] LABS: URINE BACTERIA MANY hpf; URINE SQUAMOUS EPITHELIAL CELL FEW EPI/hpf (0-FEW)
[2024-04-19] MEDS ORDERED: ACETAMINOPHEN 325 MG/TAB PO PRN (15:05)
[2024-04-19] MEDS ORDERED: MAGNESIUM HYDROXIDE 30 ML UDC PO PRN (15:05)
[2024-04-19] MEDS ORDERED: ALPRAZolam 0.25 MG PO PRN (15:10)
--- NOTE | 2024-04-19 15:31 | NUR ---
PT REPORT CALL[facility] AND [facility]
[2024-04-19] MEDS ORDERED: BUDESONIDE ER9 MG (16:29)
[2024-04-19] MEDS ORDERED: HYDROCORTISONE5 MG PO (16:34)
[2024-04-19] MEDS ORDERED: MECLIZINE12.5 M1 PO (16:35)
[2024-04-19] MEDS ORDERED: LEVOTHROID125 MCG PO (16:35)
[2024-04-19] MEDS ORDERED: NIFEDIPINE ER30 MG PO (16:36)
--- NOTE | 2024-04-19 16:36 | NUR ---
nurse aware of patient glucose level is 45.
[2024-04-19] MEDS ORDERED: RYBELSUS7 MG PO (16:38)
[2024-04-19] MEDS ORDERED: TRESIBA100 UNIT/M (16:38)
[2024-04-19] MEDS ORDERED: BRIMONIDINE0.2 % OP (16:39)
[2024-04-19] MEDS ORDERED: INSULIN LISPRO 100 UNITS/ML ML SC SCH (17:00)
--- NOTE | 2024-04-19 17:36 | NUR ---
patient glucose level is 121.
[2024-04-19] MEDS ORDERED: IPRATROPIUM-Albuterol 0.5MG-2.5MG/3 ML NEB SCH (19:00)
[2024-04-19] MEDS ORDERED: ONDANSETRON HCl 4 MG/2 ML SDV IV PRN (20:25)
[2024-04-19] MEDS ORDERED: FUROSEMIDE 40 MG/4 ML SDV IV SCH (21:00)
[2024-04-19] MEDS ORDERED: methylPREDNISolone Sod Succ 40 MG/ML SDV IV SCH (21:00)
[2024-04-19] MEDS ORDERED: traZODone HCL 50 MG/TAB PO SCH (21:00)
[2024-04-19] MEDS ORDERED: ISOSORBIDE DINITRATE 10 MG TAB PO SCH (21:00)
[2024-04-19] MEDS ORDERED: ATORVASTATIN CALCIUM 40 MG/TAB PO SCH (21:00)
[2024-04-19] MEDS ORDERED: Heparin SODIUM (Porcine) 5,000 UNITS/ML SDV SC SCH (22:00)
[2024-04-20] VITALS (7 sets, daily range): BP systolic 93–148; BP diastolic 34–59
--- NOTE | 2024-04-20 00:41 | NUR ---
Resident in bed with eyes closed and no distress noted. Complained of nausea and vomited X 1 liquids only. Zofran was given as ordered and helpful. Respiraions unlabored but wheezing noted in lung jensen. Resident is alert and able to verbalize needs and wants. bed in low position and call light is within reach. Will continue to observe.
--- NOTE | 2024-04-20 05:51 | NUR ---
PATIENT IN BED WITH EYES CLOSED WITH NO S/S OF DISTRESS OR DISCOMFORT. RECHECKED ACCUCHECK AND 105. FLUIDS GIVEN AND TOLERATED WELL. NO NAUSEA AND VOMITING THIS AM. WILL CONTINUE TO OBSERVE
[2024-04-20 05:59] LABS: BILIRUBIN, TOTAL 0.7 mg/dL (0.02-1.3); CREATININE 2.9 mg/dL (0.5-1.0); POTASSIUM 4.8 mmol/l (3.5-5.1); TOTAL PROTEIN 5.7 g/dL (6.3-8.2)
[2024-04-20 06:11] LABS: ALBUMIN 2.9 g/dL (3.2-5.0); MAGNESIUM 1.8 mg/dL (1.6-2.3)
[2024-04-20 06:23] LABS: BASO% 0.1 % (0-3); HEMATOCRIT 38.5 % (37.0-47.0); HEMOGLOBIN 11.8 g/dl (12.0-16.0); IMMATURE GRANULOCYTES 2.2 % (0.0-5.0); LYMPH% 5.2 % (15-41); MEAN CELL VOLUME 102.9 fL CALC (80.0-100.0); MEAN CORPUSCULAR HGB 31.6 pG CALC (26.0-32.0); MEAN CORPUSCULAR HGB CONC 30.6 g/dL CAL (32.0-36.0); NEUT# 23.87 thou/uL (2.00-7.15); NEUT% 90.5 % (42-76); RED BLOOD COUNT 3.74 mill/uL (4.20-5.60)
--- NOTE | 2024-04-20 07:25 | NUR ---
SHIFT CHANGE REPORT, PT AWAKE AND LETHARGIC, ORIENTED TO PERSON AND PLACE ONLY, NO C/O DISCOMFORT, REQUESTING APPLE JUICE AT THIS TIME, O2 @ 2L VIA NC IN PLACE, TELE MONITOR IN PLACE, CALL ROBBINS IN REACH AND BED LOCKED IN LOWEST POSITION.
[2024-04-20] MEDS ORDERED: OSELTAMIVIR PHOSPHATE 30 MG/CAP PO SCH (09:00)
[2024-04-20] MEDS ORDERED: PANTOPRAZOLE SODIUM Sesquihydr 40 MG/TAB PO SCH (09:00)
[2024-04-20] MEDS ORDERED: ASPIRIN 81 MG/TAB PO SCH (09:00)
[2024-04-20] MEDS ORDERED: SODIUM CHLORIDE 0.9% 1,000 ML IV PRN (10:55)
[2024-04-20] MEDS ORDERED: AZITHROMYCIN 500 MG in SODIUM CHLORIDE 0.9% 250 ML IV SCH ×2 (11:00→18:00)
--- NOTE | 2024-04-20 18:01 | NUR ---
FOUR NURSES FROM DIFFERENT DEPT ATTEMPTED TO PLACE PERIPHERAL IV CATHETER WITHOUT SUCCESS, PT HAS IV FLUIDS AND IV ANTIBIOTICS ORDERED WHICH HAS NOT BEEN GIVEN. DR WAITE NOTIFIED AND ADVISED TO WAIT UNTIL TOMORROW WHEN HE GETS HERE AND WHEN RADIOLOGY STAFF IS HERE.
[2024-04-20] MEDS ORDERED: INSULIN LISPRO 100 UNITS/ML ML SC SCH (21:10)
[2024-04-21 05:01] VITALS: BP 131/55
[2024-04-21 05:08] LABS: LYMPH% 1.5 % (15-41); MEAN CELL VOLUME 100.3 fL CALC (80.0-100.0); MEAN CORPUSCULAR HGB CONC 31.9 g/dL CAL (32.0-36.0); MONO% 1.5 % (2-13); NEUT# 24.51 thou/uL (2.00-7.15); NEUT% 89.3 % (42-76)
[2024-04-21 05:16] LABS: ALBUMIN 2.6 g/dL (3.2-5.0); CREATININE 3.2 mg/dL (0.5-1.0); HEMATOCRIT 30.1 % (37.0-47.0); HEMOGLOBIN 9.6 g/dl (12.0-16.0); IMMATURE GRANULOCYTES 7.7 % (0.0-5.0); MAGNESIUM 2.1 mg/dL (1.6-2.3); TOTAL PROTEIN 5.1 g/dL (6.3-8.2)
[2024-04-21 05:22] LABS: BILIRUBIN, TOTAL 0.4 mg/dL (0.02-1.3); POTASSIUM 3.7 mmol/l (3.5-5.1)
--- NOTE | 2024-04-21 05:52 | NUR ---
PT REMAINED STABLE THROUGHOUT SHIFT WITH CALL LIGHT IN REACH AT ALL TIMES
[2024-04-21 07:32] VITALS: BP 156/58
--- NOTE | 2024-04-21 08:00 | NUR ---
Patient sitting up in bed watching television and eating breakfast.
[2024-04-21] MEDS ORDERED: INSULIN GLARGINE 100 UNITS/ML SC SCH (09:00)
[2024-04-21 11:15] VITALS: BP 125/47
[2024-04-21] MEDS ORDERED: SODIUM CHLORIDE 0.9% 1,000 ML IV ONE (12:27)
[2024-04-21] MEDS ORDERED: BRIMONIDINE TAR (12:42)
[2024-04-21] MEDS ORDERED: LEVOTHYROXIN137 MCG PO (12:45)
[2024-04-21] MEDS ORDERED: BUDESONIDE3 MG PO (12:48)
[2024-04-21] MEDS ORDERED: CARVEDILOL12.5 MG PO (12:52)
[2024-04-21] MEDS ORDERED: BRILINTA90 MG PO (12:56)
[2024-04-21] MEDS ORDERED: FARXIGA10 MG PO (12:57)
[2024-04-21] MEDS ORDERED: POT CHLORIDE20 ME2 PO (12:58)
--- NOTE | 2024-04-21 13:00 | NUR ---
Patient sitting in recliner watching television.
[2024-04-21 15:12] VITALS: BP 145/54
[2024-04-21] MEDS ORDERED: SODIUM CHLORIDE 0.9% 1,000 ML IV PRN (15:30)
--- NOTE | 2024-04-21 16:48 | NUR ---
Patient's [facility] informed of patient discharge. Caregiver states, "Can she stand? Do you have my medicine? I brought her there because she couldn't stand up." RN informed patient's caregiver that nurse present at bedside with physical therapy assessment and patient was unable to follow commands or comprehend instructions to stand. Patient confused and disoriented. Patient's legs are bent to patient's chest continuously. Patient's caregiver informed that RN has patient's medication brought feom home at nursing station. Patient's caregiver states, "I will just take her medications and back to the ER." NIKKY Henao, Clinical visual merchandising manager informed with NEELIMA Rhodes.
--- NOTE | 2024-04-21 18:00 | NUR ---
Patient sitting in bed eating dinner.
[2024-04-21 18:30] VITALS: BP 183/63
[2024-04-22] VITALS: BP 191/90
[2024-04-22 05:00] VITALS: BP 190/74
[2024-04-22] MEDS ORDERED: hydrALAZINE HCL 20 MG/ML VIAL(1 ML) IV PRN (05:55)
[2024-04-22 07:02] LABS: ALBUMIN 2.7 g/dL (3.2-5.0); BILIRUBIN, TOTAL 0.3 mg/dL (0.02-1.3); HEMATOCRIT 26.9 % (37.0-47.0); HEMOGLOBIN 8.9 g/dl (12.0-16.0); IMMATURE GRANULOCYTES 2.6 % (0.0-5.0); LYMPH% 1.7 % (15-41); MAGNESIUM 2.3 mg/dL (1.6-2.3); MEAN CELL VOLUME 97.1 fL CALC (80.0-100.0); MEAN CORPUSCULAR HGB 32.1 pG CALC (26.0-32.0); MEAN CORPUSCULAR HGB CONC 33.1 g/dL CAL (32.0-36.0); MONO% 1.1 % (2-13); NEUT# 21.1 thou/uL (2.00-7.15); NEUT% 94.6 % (42-76); POTASSIUM 3.8 mmol/l (3.5-5.1); RED BLOOD COUNT 2.77 mill/uL (4.20-5.60); RED CELL DISTRI WIDTH 13.6 % (11.5-15.5); TOTAL PROTEIN 5.4 g/dL (6.3-8.2)
[2024-04-22 07:26] VITALS: BP 160/52
[2024-04-22] MEDS ORDERED: CARVEDILOL 6.25 MG/TAB PO SCH (09:00)
[2024-04-22] MEDS ORDERED: TICAGRELOR BASE 90 MG TAB PO SCH (09:00)
[2024-04-22 10:51] VITALS: BP 157/54
[2024-04-22] MEDS ORDERED: LEVOFLOXACIN500MG PO (13:46)
[2024-04-22 15:12] VITALS: BP 198/72
--- NOTE | 2024-04-22 16:23 | NUR ---
Discharge instructions reviewed with patient whom verbalized understanding.
[2024-04-23] MEDS ORDERED: LEVOTHYROXINE SODIUM 112 MCG/TAB PO SCH (06:00)
[2024-04-23] MEDS ORDERED: LEVOTHYROXINE SODIUM 25 MCG/TAB PO SCH (06:00)
== END 2024-04-22 16:38 | disposition home health service (06) | DRG 193 ==
LOC: ED 10:32 → ED-I 13:13 → ED 13:44 → MS2 13:45
PROVIDERS: Family Medicine; Nurse Practitioner Family; ADMIT Internal Medicine; ATTEND Internal Medicine
DX: J10.00 Influenza due to other identified influenza virus with unspecified type of pneumonia (principal); J96.01 Acute respiratory failure with hypoxia; N39.0 Urinary tract infection, site not specified; N17.9 Acute kidney failure, unspecified; B96.20 Unspecified Escherichia coli [E. coli] as the cause of diseases classified elsewhere; E11.22 Type 2 diabetes mellitus with diabetic chronic kidney disease; I12.9 Hypertensive chronic kidney disease with stage 1 through stage 4 chronic kidney disease, or unspecified chronic kidney disease; N18.9 Chronic kidney disease, unspecified; E03.9 Hypothyroidism, unspecified; I25.2 Old myocardial infarction; Z86.73 Personal history of transient ischemic attack (TIA), and cerebral infarction without residual deficits; Z98.84 Bariatric surgery status; Z79.01 Long term (current) use of anticoagulants; Z79.82 Long term (current) use of aspirin; Z20.822 Contact with and (suspected) exposure to COVID-19
CPT/HCPCS: J0360; J0456; J0696; J1644; J1815; J1940; J2405

== ENCOUNTER 2024-05-31 13:28 | Emergency (ER) | payer MEDICARE, MEDICAID ==
[~2024-05-31] VITALS: Ht 157.5 cm; Wt 60.7 kg
[~2024-05-31 13:28] MED LIST changes: +BRILINTA90 MG PO; +BRIMONIDINE TAR; +BRIMONIDINE0.2 % OP; +BUDESONIDE ER9 MG; +BUDESONIDE3 MG PO; +CARVEDILOL12.5 MG PO; +FARXIGA10 MG PO; +HYDROCORTISONE5 MG PO; +LEVOFLOXACIN500MG PO; +LEVOTHROID125 MCG PO; +LEVOTHYROXIN137 MCG PO; +MECLIZINE12.5 M1 PO; +NIFEDIPINE ER30 MG PO; +POT CHLORIDE20 ME2 PO; +RYBELSUS7 MG PO; +TRESIBA100 UNIT/M
[2024-05-31 13:59] VITALS: BP 144/52
[2024-05-31] MEDS ORDERED: LIDOCAINE 2% W/ EPINEPHRINE 20 ML INJ STI ONE (14:05)
[2024-05-31 14:15] VITALS: BP 159/59
[2024-05-31 14:30] VITALS: BP 152/58
[2024-05-31 14:45] VITALS: BP 153/57
[2024-05-31 15:00] VITALS: BP 148/57
== END 2024-05-31 15:21 | disposition home or self-care (01) ==
LOC: ED 13:28
PROC: 0Y3 Anatomical Regions, Lower Extremities, Control (ICD-10-PCS; principal; 2024-05-31)
DX: C43.72 Malignant melanoma of left lower limb, including hip (principal); R58 Hemorrhage, not elsewhere classified; I12.9 Hypertensive chronic kidney disease with stage 1 through stage 4 chronic kidney disease, or unspecified chronic kidney disease; E11.22 Type 2 diabetes mellitus with diabetic chronic kidney disease; N18.9 Chronic kidney disease, unspecified; Z79.84 Long term (current) use of oral hypoglycemic drugs; Z79.4 Long term (current) use of insulin